=== PATIENT | female | born 1985 | race Two or more races ===

== ENCOUNTER 2016-09-19 15:40 | Emergency (ER) | payer BC ==
[~2016-09-19] VITALS: Ht 154.9 cm; Wt 63.5 kg
[~2016-09-19 15:40] MED LIST: CYCLOBENZAPRINE10 MG ORAL; KEFLEX500 MG ORAL; NKM; PHENAZOPYRIDIN200 MG ORAL
[2016-09-19 15:56] VITALS: BP 109/77
[2016-09-19 16:59] VITALS: BP 109/77
--- NOTE | 2016-09-20 07:40 | Emergency Room Report ---
History of Present Illness General Chief Complaint: Abdominal Pain Source: Patient Present Illness HPI 31YOF [employer] patient with epigastric pain for 1 day after eating tomato sauce. Known acid reflux. Feels sharp, burning type pain up thru middle of chest. Worse with lying down. Didnt take any OTC meds. Denies chance of being , other medical problems, previous abd/pelvic surgery. Denies urinary complaints, nausea/vomiting. Allergies: Coded Allergies: No Known Allergies (Unverified , 02/20/13) Patient History Past Medical History: GERD Past Surgical History: none Pertinent Family History: none Social History: Denies: alcohol use, drug use, smoking Last Menstrual Period: 09/13/16 Now: No : 3 Para: 2 Immunizations: UTD Reviewed Nursing Documentation: PMH: Agreed, PSxH: Agreed Nursing Documentation-PMH Past Medical History: No Stated History Review of Systems All Other Systems: negative except mentioned in HPI Physical Exam Vital Signs Date Time Temp Pulse Resp B/P Pulse Ox O2 Delivery O2 Flow Rate FiO2 09/19/16 15:47 98.1 72 16 113/74 98 Room Air Sp02 EP Interpretation: reviewed, normal General Appearance: normal inspection, well appearing, no apparent distress, alert, GCS 15, non-toxic Head: normocephalic, atraumatic Eyes: bilateral eye EOMI, bilateral eye PERRL ENT: normal ENT inspection, hearing grossly normal, normal voice Neck: normal inspection, full range of motion, supple, no bony tend Respiratory: normal inspection, lungs clear, normal breath sounds, no respiratory distress, no retraction, no wheezing Cardiovascular #1: regular rate, rhythm, no edema Gastrointestinal: normal inspection, normal bowel sounds, non tender, soft, no guarding, no hernia Genitourinary: no CVA tenderness Musculoskeletal: normal inspection, back normal, normal range of motion, Laz' s Sign negative Neurologic: normal inspection, alert, oriented x3, responsive, director of perioperative services III-XII nml as tested, motor strength/tone normal, speech normal Psychiatric: normal inspection, judgement/insight normal, mood/affect normal Skin: normal inspection, normal color, no rash Lymphatic: normal inspection Medical Decision Making Diagnostic Impression: Primary Impression: abdominal pain ER Course Epigastric abd pain - VSS. Afebrile - Non focal abdomen - History of GERD, likely acute exacerbation, ?gastritis - I discussed plan for GI Cocktail with patient - she agreed - Low suspicion for acute bacterial or surgical process requiring IV, labs, imaging at this point - 1 minute after I discussed plan with patient, she told RN she wanted to leave. - She signed AMA paperwork and nurse placed in her physical chart. Patient is clinically sober, is free from from distracting injury, and has intact judgement and capacity to decide to leave against medical advice. Patient came in with abdominal pain. I'm concerned for possible gastritis, GERD exacerbation. Patient verbalized understanding of my concern and plan to do GI Cocktail, check urine /UA and reassess her abdomen and symptoms. I explained to patient the risks of leaving AMA and patient informed that if they she leaves, she could get worse, she could become become critically ill, possibly become disabled or . Patient verbalized back to me understanding of these risks but still wants to leave. I offered to Rx meds for her and she refused as well. Understands to return for worsening symptoms. Otherwise to follow up with PMD. Last Vital Signs Date Time Temp Pulse Resp B/P Pulse Ox O2 Delivery O2 Flow Rate FiO2 09/19/16 16:59 98.1 74 15 109/77 98 Room Air Status: improved Disposition: AGAINST MEDICAL ADVICE Condition: Stable Referrals: NON PHYSICIAN (PCP) LUIS ANGEL TEMPLE M.D. Sep 20, 2016 07:40
== END 2016-09-19 17:00 | disposition left against medical advice (07) ==
LOC: EMR 16:43
DX: R10.13 Epigastric pain (principal); K21.9 Gastro-esophageal reflux disease without esophagitis
CPT/HCPCS: 99282